=== PATIENT | female | born 1970 | race American Indian/Alaskan Native ===

== ENCOUNTER 2017-07-12 08:16 | Outpatient (CLI) | payer OTHER ==
--- NOTE | 2017-07-12 10:52 | Mammography Report ---
BILATERAL DIGITAL SCREENING MAMMOGRAM with CAD : 07/12/17 08:16:00 CLINICAL: Routine screening. COMPARISON:10/20/14 FINDINGS: The breasts are heterogeneously dense, which may obscure small masses.2 stable left circumscribed masses. No new mass, architectural distortion or suspicious calcifications. IMPRESSION: No mammographic evidence of malignancy. BI-RADS CATEGORY: 2 -- Benign RECOMMENDATION: Routine mammographic screening in one year. COMMENT: Patient follow-up letters are generated by our [employer] application.
== END 2017-07-12 08:17 | disposition home or self-care (01) ==
LOC: SPVWC 08:16
PROVIDERS: ATTEND Family Medicine
DX: Z12.31 Encounter for screening mammogram for malignant neoplasm of breast (principal)
CPT/HCPCS: 77067; G0202

== ENCOUNTER 2017-08-02 06:03 | Day surgery (SDC) | payer OTHER ==
[2017-07-27 12:28] LABS: Basophils % (Auto) 0.8 % (0.0-1.8); Eosinophils # (Auto) 0.2 K/mm3 (0.0-0.4); Eosinophils % (Auto) 3.7 % (0.0-4.3); Hematocrit 32.8 % (30.3-42.9); Hemoglobin 10.3 gm/dl (10.1-14.3); Lymphocytes # (Auto) 1.9 K/mm3 (1.2-5.4); Mean Corpuscular HGB Conc 31 % (30-34); Monocytes # (Auto) 0.6 K/mm3 (0.0-0.8); Platelet Count 267 K/mm3 (140-440); Red Blood Count 5.58 M/mm3 (3.65-5.03); Red Cell Distribution Width 16.8 % (13.2-15.2)
[2017-07-27 12:31] LABS: Mean Corpuscular Hemoglobin 18 pg (28-32); Mean Corpuscular Volume 59 fl (79-97)
--- NOTE | 2017-07-27 12:37 | Anesthesia Consultation ---
Anesthesia Consult and Med Hx Date of service: 07/27/17 - Airway Anesthetic Teeth Evaluation: Good ROM Head & Neck: Adequate Mental/Hyoid Distance: Adequate Mallampati Class: Class II Intubation Access Assessment: Probably Good - Pulmonary Exam CTA: Yes - Cardiac Exam Cardiac Exam: RRR - Pre-Operative Health Status ASA Pre-Surgery Classification: ASA2 Proposed Anesthetic Plan: General - Pre-Anesthesia Comment Pre-Anesthesia Comments: several rear teeth missing - Cardiovascular System Hx Heart Murmur: Yes (H/O murmur) - Central Nervous System Hx Psychiatric Problems: No - Hematic Hx Anemia: Yes - Other Systems Hx Alcohol Use: Yes (occas) Hx Cancer: No
[2017-07-27 12:46] LABS: BUN/Creatinine Ratio 20; Blood Urea Nitrogen 10 mg/dL (7-17); Calcium 9.1 mg/dL (8.4-10.2); Hemolysis Index 4
--- NOTE | 2017-08-01 12:53 | History and Physical Report ---
History of Present Illness Date of examination: 07/27/17 History of present illness: Patient has been reassessed/reevaluated. H&P has been reviewed. No interval changes. This is a 46 years old female who presents with uterine fibroids. The patient presents with pelvic pressure and menorrhagia, but denies abdominal pain, abdominal pressure, pelvic pain and intermenstrual bleeding. Prior imaging includes: US of pelvis. Patient's work up has included hysterosonogram which revealed a submucosal myoma. Patient's symptoms when present disrupts her normal daily activities Patient desires definitive treatment The symptoms began >1 year ago. She complains of heavy bleeding, clotting, fatigue and cramping, but denies irregular menses, mid-cycle spotting, lack of menses, dysmenorrhea, history of ovarian cysts, history of thyroid disease, history of fibroids, history of PCOS, history of bleeding disorder and lightheadedness. Menstrual flow lasts > 7 days. Vital Signs: Patient Profile: 46 Years Old Female Height: 65.5 inches (166.37 cm) Weight: 198 pounds (90.00 kg) BMI: 32.44 BSA: 1.98 Current Method of Contraception: None Past History : 1 Term Births: 1 Premature Births: 0 Living Children: 1 Para: 1 Mult. Births: 0 Prev : 0 Prev. attempt? 0 Aborta: 0 Elect. Ab: 0 Spont. Ab: 0 Ectopics: 0 EQUIPMENT OPERAT0R History Operations: Laparoscopy (2003) Foot surgery @ 10yo Abnormal PAP: positive Uterine Anomaly: negative Infection History HIV Risk Eval: no Personal hx. of genital herpes: yes Hx of STD: None Current Allergies (reviewed today): No known allergies Past Medical History: Anemia Thalasemia Past Surgical History: Laparoscopy (2003) Foot surgery @ 10yo Family History Summary: Daughter (biol.) - Has Family History of Coronary Heart Disease - Please disregard relationships chosen - Entered On: 02/05/2015 Daughter (biol.) - Has Family History of CVA or Stroke - Please disregard relationships chosen - Entered On: 02/05/2015 Daughter (biol.) - Has Family History of Diabetes - Please disregard relationships chosen - Entered On: 02/05/2015 Daughter (biol.) - Has Family History of Hypertension - Please disregard relationships chosen - Entered On: 02/05/2015 Daughter (biol.) - Has Family History of Prostate Cancer - Please disregard relationships chosen - Entered On: 02/05/2015 Daughter (tomas.) - Has Family History of Renal Disease - Please disregard relationships chosen - Entered On: 02/05/2015 Daughter (tomas.) - Has No Family History of Breast Cancer - Please disregard relationships chosen - Entered On: 02/05/2015 Daughter (tomas.) - Has No Family History of Colon Cancer - Please disregard relationships chosen - Entered On: 02/05/2015 Daughter (tomas.) - Has No Family History of Ovarvian Cancer - Please disregard relationships chosen - Entered On: 02/05/2015 Social History: Patient is single Smoking History: Patient has never smoked. Patient son s/p mutiorgan transplant with chronic rejection complications Risk Factors: Smoked Tobacco Use: Never smoker Smokeless Tobacco Use: Never Drug use: no HIV high-risk behavior: no Alcohol use: yes Type: occ Exercise: no Seatbelt use: 100 % Review of Systems See HPI General Denies fever, chills, sweats, anorexia, fatigue, weakness, malaise, weight loss and sleep disorder. Complains of menorrhagia. Denies vaginal discharge, incontinence, dysuria, hematuria, urinary frequency, amenorrhea, abnormal vaginal bleeding, pelvic pain, genital sores, decreased libido, painful periods, painful sex, urinary urgency, hot flashes, vaginal dryness, vaginal itching and vaginal odor. CV Denies chest pains, palpitations, syncope, dyspnea on exertion, orthopnea, PND and peripheral edema. Resp Denies cough, dyspnea at rest, excessive sputum, hemoptysis, wheezing and pleurisy. GI Denies nausea, vomiting, diarrhea, constipation, change in bowel habits, abdominal pain, melena, hematochezia, jaundice, gas/bloating, indigestion/ heartburn, dysphagia and odynophagia. Breast Denies left breast lump, right breast lump, nipple discharge, bloody discharge from nipple, breast pain, abnormal mammogram and breast enlargement. Psych Denies depression, anxiety, irritability and mood swings. Past History Past Medical History: other (See HPI) Past Surgical History: Other (See HPI) Social history: other (See HPI) Family history: other (See HPI) Medications and Allergies Allergies Allergy/AdvReac Type Severity Reaction Status Date / Time No Known Allergies Allergy Unverified 07/26/17 14:37 Home Medications Medication Instructions Recorded Confirmed Last Taken Type Ergocalciferol [Vitamin D2] 1 cap PO QWEEK 07/26/17 08/02/17 2 Weeks Ago History ~07/19/17 Rizatriptan Benzoate [Rizatriptan] 1 tab PO PRN PRN 07/26/17 08/02/17 1 Month Ago History ~07/03/17 Active Meds: Active Medications Famotidine (Pepcid) 20 mg PO PREOP NR Stop: 08/02/17 23:00 Lactated Ringer's (Lactated Ringers) 1,000 mls @ 100 mls/hr IV DIRECT ADRIENNE Midazolam HCl (Versed) 2 mg IV PREOP NR Stop: 08/02/17 23:00 Review of Systems Constitutional: other (See HPI) Exam - Physical Exam Narrative exam: HEENT: normocephalic, no lesions or deformities Neck/Thyroid: supple, thyroid normal Skin no significant abnormal lesions or rashes Chest: respiratory effort normal, clear to auscultation Breasts: normal without skin changes or masses CV: regular, normal S1-S2, no murmur, no rub, no gallop Abdomen: normal bowel sounds, soft, nontender, no HSM Musculoskeletal: grossly normal ROM in joints, no joint tenderness or muscle weakness Neuro: no gross anomalities Extremities: no clubbing, cyanosis, or edema EQUIPMENT OPERAT0R Exams Vulva/Vagina: No lesions, normal BUS, normal rugae Cervix: No lesions; no cervical motion tenderness Uterus: unable to palpate due to obesity Adnexae: unable to palpate due to obesity Rectovaginal: exam defered - Constitutional Vitals: Temp Pulse Resp BP Pulse Ox 98.5 F 78 16 140/84 07/27/17 12:00 07/27/17 12:00 07/27/17 12:00 07/27/17 12:00 Results - Labs CBC & Chem 7: 07/27/17 12:10 07/27/17 12:10 Assessment and Plan - Patient Problems (1) Submucous leiomyoma of uterus Current Visit: Yes Status: Acute Plan to address problem: Diagnosis explained to patient . Questions answered. Discussed with patient various medical, surgical and radiological therapies common for treatment including myomectomy hysterectomy and uterine artery embolization Patient desires definitive treatment Patient desires least invasive treatment. Patient desires to retain future fertility. She desires myomectomy Discussed risk of surgery including infection, bleeding and risk of perforating her uterus. Questions answered. Patient understands and desires to proceed (2) Menorrhagia Current Visit: Yes Status: Acute Qualifiers: Menorrahagia type: with regular cycle Qualified Code(s): N92.0 - Excessive and frequent menstruation with regular cycle Plan to address problem: Problably secondary to #1
[~2017-08-02 06:03] MED LIST: LACTATED RINGERS 1,000 ML IV SCH; PEPCID PO NR; VERSED IV NR
[2017-08-02] MEDS ORDERED: NACL BACTERIOSTATIC INFILTRATI ONE (06:32)
[2017-08-02] MEDS ORDERED: SILVER NITRATE TP NR (07:00)
[2017-08-02] MEDS ORDERED: XYLOCAINE MPF 2% ONE (07:23)
[2017-08-02] MEDS ORDERED: DIPRIVAN 10 MG/ML IV ONE (07:23)
[2017-08-02] MEDS ORDERED: DILAUDID ONE ×2 (07:24→09:27)
[2017-08-02] MEDS ORDERED: ZOFRAN ONE (07:53)
[2017-08-02] MEDS ORDERED: DECADRON ONE (07:53)
[2017-08-02] MEDS ORDERED: NEO SYNEPHRINE/NS Syringe(OR USE) IV ONE (08:10)
[2017-08-02] MEDS ORDERED: NACL 0.9% IR ONE (08:15)
--- NOTE | 2017-08-02 08:35 | Operative Report ---
Operative Report Operative Report: Date of procedure: 08/02/2017 Pre-operative diagnosis: Submucosal myoma with menorrhalgia Post-operative diagnosis: Same Procedure name(s): Operative hysteroscopy with MyoSure Surgeon: Carter Barclay MD Garbage Collector Driver: LILLIAN Anesthesia: Gen. EBL: Minimal Complications: None Findings: Patient approximately 2 cm myoma located in the left cornea tubal ostia seen. Some thickened endometrium Specimen(s): Uterine mass Procedure: Patient was brought into the operating room, where general anesthesia was induced without any difficulty. Patient was placed in dorsal lithotomy position. Prep and drape in the usual sterile manner. Timeout procedure was performed. The patient's bladder was emptied with a red rubber catheter. Speculum was placed in the vagina. Tenaculum was placed at 12:00 on the cervix. The cervical os was dilated to a 19 Sami diameter. The hysteroscope was placed and the findings noted above. The MyoSure device was primed. The device was placed through the cervical os. The mass was then removed using the MyoSure. The mass was completely removed with no evidence of puncture on the uterine wall. All instruments were then removed. The patient was awakened in the operating room and accompanied to recovery room in good condition. Fluid deficit 700 mL
--- NOTE | 2017-08-02 08:40 | Short Stay Summary ---
Short Stay Documentation Date of service: 08/02/17 - History H&P: dictated Past Medical History: other (See HPI) Past Surgical History: Other (See HPI) Social history: other (See HPI) - Allergies and Medications Current Medications: Allergies No Known Allergies Allergy (Unverified 07/26/17 14:37) Home Medications Medication Instructions Recorded Confirmed Last Taken Type Ergocalciferol [Vitamin D2] 1 cap PO QWEEK 07/26/17 08/02/17 2 Weeks Ago History ~07/19/17 Rizatriptan Benzoate [Rizatriptan] 1 tab PO PRN PRN 07/26/17 08/02/17 1 Month Ago History ~07/03/17 Doxycycline [Vibramycin CAP] 100 mg PO Q12HR #14 capsule 08/02/17 Unknown Rx Ibuprofen [Motrin 800 MG tab] 800 mg PO Q6H PRN #30 tablet 08/02/17 Unknown Rx Active Medications Famotidine (Pepcid) 20 mg PO PREOP NR Stop: 08/02/17 23:00 Last Admin: 08/02/17 06:35 Dose: 20 mg Lactated Ringer's (Lactated Ringers) 1,000 mls @ 100 mls/hr IV DIRECT ADRIENNE Last Admin: 08/02/17 06:45 Dose: 100 mls/hr Midazolam HCl (Versed) 2 mg IV PREOP NR Stop: 08/02/17 23:00 Last Admin: 08/02/17 06:46 Dose: 2 mg Silver Nitrate (Silver Nitrate) 3 each TP ONCE NR Stop: 08/02/17 23:59 - Brief post op/procedure progress note Date of procedure: 08/02/17 (see dictated note) Condition: stable - Hospital course Hospital course: Patient was admitted underwent the above him procedure without any complications. Patient will be discharged with follow-up in office in 1-2 weeks for postop check. - Disposition Condition at discharge: Good Disposition: [id number] TO HOME OR SELFCARE - Discharge Diagnoses (1) Submucous leiomyoma of uterus Status: Resolved (2) Menorrhagia Status: Acute Qualifiers: Menorrahagia type: with regular cycle Qualified Code(s): N92.0 - Excessive and frequent menstruation with regular cycle Short Stay Discharge Plan Activity: advance as tolerated Diet: regular Follow up with: JOSIAH SOLIS MD [Primary Care Provider] - 7 Days Prescriptions: Ibuprofen [Motrin 800 MG tab] 800 mg PO Q6H PRN #30 tablet PRN Reason: Pain Doxycycline [Vibramycin CAP] 100 mg PO Q12HR #14 capsule
[2017-08-02] MEDS ORDERED: ZOFRAN IV PRN (09:02)
[2017-08-02] MEDS ORDERED: MORPHINE IV PRN (09:02)
[2017-08-02] MEDS ORDERED: DILAUDID IV PRN (09:19)
[2017-08-02] MEDS: DILAUDID IV PRN ×2 (09:27→09:40)
[2017-08-02] MEDS ORDERED: REGLAN IV PRN (10:23)
--- NOTE | 2017-08-02 13:27 | Post Anesthesia Evaluation ---
- Post Anesthesia Evaluation Patient Participated: Yes Airway Patent: Yes Stable Respiratory Function: Yes Nausea/Vomiting: No Temp > 96.8F: Yes Pain Manageable: Yes Adequeate Hydration: Yes Anesthesia Complications: No Block Receding Appropriately: Not Applicable Patient on Ventilator: No
[2017-08-02 16:41] VITALS: BP 137/84
== END 2017-08-02 11:30 | disposition home or self-care (01) ==
LOC: OR 06:03
PROVIDERS: ATTEND Obstetrics & Gynecology
DX: D25.0 Submucous leiomyoma of uterus (principal); D56.9 Thalassemia, unspecified; Z98.890 Other specified postprocedural states
CPT/HCPCS: 36415; 58561; 80048; 84703; 85025; 88305; A4217; C1782; J1100; J1170; J2250; J2370; J2405; J2704; J2765; J7120

== ENCOUNTER 2018-11-28 08:59 | Outpatient (CLI) | payer OTHER ==
--- NOTE | 2018-11-28 12:51 | Mammography Report ---
BILATERAL DIGITAL SCREENING MAMMOGRAM with CAD : 11/28/18 08:59:00 CLINICAL: Routine screening. COMPARISON:07/12/17 FINDINGS: The breasts are heterogeneously dense, which may obscure small masses.2 stable left circumscribed masses. No new mass, architectural distortion or suspicious calcifications. IMPRESSION: No mammographic evidence of malignancy. BI-RADS CATEGORY: 2 -- Benign RECOMMENDATION: Routine mammographic screening in one year. COMMENT: Patient follow-up letters are generated by our [employer] application.
== END 2018-11-28 09:00 | disposition home or self-care (01) ==
LOC: SPVWC 08:59
PROVIDERS: ATTEND Family Medicine
DX: Z12.31 Encounter for screening mammogram for malignant neoplasm of breast (principal)
CPT/HCPCS: 77067